=== PATIENT | female | born 1970 | race Caucasian/White ===

== ENCOUNTER 2017-03-02 11:43 | Emergency (ER) | payer OTHER ==
[~2017-03-02 11:43] MED LIST: CHANTIX PO; CLINDAMYCIN HC300 MG PO; FLEXERIL PO; FLEXERIL10 MG PO; MEDROL PO; NAPROXEN PO; NEURONTIN300 MG; PERCOCET5/325 PO; TEMAZEPAM30 MG PO; TYLENOL #3 PO; VOLTAREN50 MG PO; VOLTAREN75 MG PO
[2017-03-02] MEDS ORDERED: NEURONTIN800 MG (11:50)
== END 2017-03-02 12:56 | disposition home or self-care (01) ==
LOC: SED 11:43
DX: S60.413A Abrasion of left middle finger, initial encounter (principal); F17.210 Nicotine dependence, cigarettes, uncomplicated; Z88.2 Allergy status to sulfonamides; Z88.1 Allergy status to other antibiotic agents; Z23 Encounter for immunization; W22.8XXA Striking against or struck by other objects, initial encounter; Y92.098 Other place in other non-institutional residence as the place of occurrence of the external cause
CPT/HCPCS: 90471; 90715; 99283

== ENCOUNTER 2017-04-03 19:21 | Emergency (ER) | payer OTHER ==
[~2017-04-03] VITALS: Ht 165.1 cm; Wt 56.2 kg
== END 2017-04-03 20:05 | disposition home or self-care (01) ==
LOC: SED 19:21
DX: S90.822A Blister (nonthermal), left foot, initial encounter (principal); X58.XXXA Exposure to other specified factors, initial encounter; Z90.49 Acquired absence of other specified parts of digestive tract
CPT/HCPCS: 10021; 99283

== ENCOUNTER → 2017-04-03 | Outpatient (CLI) | payer OTHER ==
[~2017-04-03] MED LIST changes: +NEURONTIN800 MG
--- NOTE | ~2017-04-03 | CR63 ---
[facility]. [facility] A Service of [facility] RADIOLOGY TEXT RESULTS PATIENT: ANJUM DESAI LOCATION: [facility] : 66 UNIT #: [id number] AGE: [address]: Penelope Lozano SENIOR SOFTWARE DEVELOPMENT ENGINEER SEX: F ORDER DR: [id number] [address] [address] [id number] O MR#: [id number] Acc #: [id number] NAME: ANJUM DESAI : 1970 SEX: F STUDY DATE/TIME: 04/03/2017 19:11 UNIT: [facility] ROOM: STUDY DESCRIPTION: CR Chest 2 View Attending Physician: Penelope Lozano A.P.R.N. Ordering Physician: Penelope Lozano A.P.R.N. Primary Care Physician: Penelope Lozano A.P.R.N. MEDICAL IMAGING REPORT This report is preliminary unless electronic signature is present. EXAM Two-view chest INDICATIONS Weight loss and cough. FINDINGS PA and lateral views of the chest compared to 01/21/2009. The heart and mediastinal contours are normal. There is a small hiatal hernia. Lungs are clear. No pleural effusion. There are some postsurgical clips in the region of the gastroesophageal junction. IMPRESSION Negative chest radiograph. Dictated by... Alber Mccall M.D. THIS IS AN ELECTRONICALLY VERIFIED REPORT Alber Mccall M.D. at 04/04/2017 2:53 PM LIZZY/zain TD: 04/04/2017 08:49 JOB #: [id number] MEDICAL IMAGING REPORT Page 1 of 1
== END | disposition home or self-care (01) ==
LOC: SRAD 19:06
DX: R63.4 Abnormal weight loss (principal); F17.200 Nicotine dependence, unspecified, uncomplicated
CPT/HCPCS: 71020

== ENCOUNTER → 2017-04-27 | Outpatient (CLI) | payer OTHER ==
--- NOTE | ~2017-04-27 | MY30 ---
[facility] A Service of [facility] RADIOLOGY TEXT RESULTS PATIENT: AJNUM DESAI LOCATION: [facility] : 66 UNIT #: [id number] AGE: [address]: Penelope Lozano SEX: F ORDER DR: [id number] [place] [id number] O MR#: [id number] Acc #: [id number] NAME: ANJUM DESAI : 1970 SEX: F STUDY DATE/TIME: 04/27/2017 11:02 UNIT: [facility] ROOM: STUDY DESCRIPTION: MY SCREEN PAULO BILAT DIGITAL Attending Physician: Penelope Lozano A.P.R.N. Referring Physician: Penelope Lozano A.P.R.N. Ordering Physician: Penelope Lozano A.P.R.N. Primary Care Physician: Penelope Lozano A.P.R.N. MEDICAL IMAGING REPORT This report is preliminary unless electronic signature is present. EXAM Bilateral digital screening mammogram with CAD 04/27/2017 HISTORY 46-year-old female with no personal or family history breast cancer. No current complaints. COMPARISON None. [facility] states her previous films were destroyed. The current study serves as a new baseline exam. TECHNIQUE CC and MLO views were obtained of each breast utilizing digital technique and reviewed a FDA-approved CAD device. FINDINGS Scattered fibroglandular densities are present. No suspicious nodule, architectural distortion or clustered microcalcification. No abnormal skin thickening or nipple retraction. IMPRESSION 1. BIRADS 1. Negative screening mammogram. Routine screening mammogram is recommended in 1 year. BIRADS: 1 Negative. Patients over the age of 40 are entered into a reminder system with target due date for the next mammogram. A result letter will also be sent to the patient. [facility] A Service [facility] RADIOLOGY TEXT RESULTS PATIENT: ANJUM DESAI LOCATION: [facility] : 66 UNIT #: [id number] AGE: [address]: Penelope Lozano SEX: F ORDER DR: Dictated by... Ni Rosenthal M.D. THIS IS AN ELECTRONICALLY VERIFIED REPORT Ni Rosenthal M.D. at 04/28/2017 1:11 PM NANCY/quintin TD: 04/27/2017 20:34 JOB #: [id number] MEDICAL IMAGING REPORT Page 1 of 1
== END | disposition home or self-care (01) ==
LOC: SMAM 09:50
DX: Z12.31 Encounter for screening mammogram for malignant neoplasm of breast (principal)
CPT/HCPCS: G0202